=== PATIENT | female | born 1965 | race Caucasian/White ===

== ENCOUNTER 2016-07-28 17:52 | Emergency (ER) | payer BC ==
[2016-07-28] MEDS ORDERED: COZAAR25 M1 (18:05)
[2016-07-28] MEDS ORDERED: HCTZ 25MG25 MG (18:43)
[2016-07-28] MEDS ORDERED: POTASSIUM GLUC550 M1 (18:43)
[2016-07-28] MEDS ORDERED: FISH OIL1 IU PO (18:43)
[2016-07-28 22:45] VITALS: BP 121/72
== END 2016-07-28 22:45 | disposition home or self-care (01) ==
LOC: ED 17:52
DX: K44.9 Diaphragmatic hernia without obstruction or gangrene (principal); Z86.718 Personal history of other venous thrombosis and embolism; F43.9 Reaction to severe stress, unspecified; F41.9 Anxiety disorder, unspecified; H92.01 Otalgia, right ear; M26.69 Other specified disorders of temporomandibular joint
CPT/HCPCS: J1885

== ENCOUNTER 2016-08-12 09:17 | Emergency (ER) | payer BC ==
[~2016-08-12 09:17] MED LIST: COZAAR25 M1; FISH OIL1 IU PO; HCTZ 25MG25 MG; POTASSIUM GLUC550 M1
[2016-08-12 12:52] VITALS: BP 153/96
[2016-08-12] MEDS ORDERED: NORVASC 5MG5 MG/TAB PO (12:56)
[2016-08-12] MEDS ORDERED: ASPIRIN E.C. 8181 MG PO (12:56)
[2016-08-12] MEDS ORDERED: POTASSIUM CHLO10 ME5 PO (12:56)
[2016-08-12] MEDS ORDERED: ULTRAM50 M1 PO (12:56)
== END 2016-08-12 13:10 | disposition home or self-care (01) ==
LOC: ED 09:17
DX: R07.9 Chest pain, unspecified (principal); I10 Essential (primary) hypertension; K21.9 Gastro-esophageal reflux disease without esophagitis; Z82.49 Family history of ischemic heart disease and other diseases of the circulatory system; E87.6 Hypokalemia
CPT/HCPCS: Q9967